=== PATIENT | female | born 1955 | race Caucasian/White ===

== ENCOUNTER 2018-03-27 11:26 | Emergency (ER) | payer OTHER ==
[~2018-03-27] VITALS: Ht 147.3 cm; Wt 65.8 kg
[~2018-03-27 11:26] MED LIST: ACTOS15 MG PO; ASPIRIN EC81 M1 PO; CEFUROXIME500 MG PO; DOXYCYCLINE 10100 M1 PO; FISH OIL 1,0001 EAC7 PO; GLUCOPHAGE500 MG PO; GLUCOTROL XL10 MG PO; INVOKANA100 MG PO; LANTUS100 UNIT/M SUBQ; LISINOPRIL5 MG PO; ZOCOR20 MG PO; ZOLOFT 50 MG TA50 M1 PO
[2018-03-27] MEDS ORDERED: TRULICITY1.5 MG/0.5 INJECTION (11:44)
[2018-03-27] MEDS ORDERED: LEVEMIR SUBQ (11:45)
[2018-03-27 11:58] LABS: HEMATOCRIT 44.4 % (37.0-47.0); MCH 28.8 pg (26.0-34.0); MCHC 33.9 g/dL (28.0-37.0); MCV 84.9 fL (80.0-100.0); MPV 7.6 fl. (7.2-11.1); NUCLEATED RBCS 0 /100WBC; PLATELET COUNT* 253 thou/uL (150-400); RBC 5.22 mil/uL (4.20-5.00); RDW-CV 14.5 % (10.5-14.5); WBC 14.7 thou/uL (4.0-11.0)
[2018-03-27 11:59] LABS: URINE BILIRUBIN NEGATIVE (Negative); URINE BLOOD TRACE (Negative); URINE CLARITY CLEAR; URINE COLOR YELLOW; URINE GLUCOSE-RANDOM 3+ (Negative); URINE KETONES TRACE (Negative); URINE LEUKOCYTES-REFLEX NEGATIVE (Negative); URINE PROTEIN NEGATIVE (Negative); URINE SPECIFIC GRAVITY 1.025 (1.005-1.030); URINE UROBILINOGEN 0.2 E.U./dl (0.2-1.0)
[2018-03-27 12:02] LABS: ANION GAP 9 mmol/L (7-16); BUN 15 mg/dL (7-18); CALCIUM 8.6 mg/dL (8.5-10.1); CHLORIDE 101 mmol/L (98-107); CO2 27 mmol/L (21-32); CREATININE 0.8 mg/dL (0.6-1.3); GLUCOSE 272 mg/dL (70-99); POTASSIUM 4.1 mmol/L (3.5-5.1); SODIUM 137 mmol/L (136-145)
[2018-03-27 12:02] LABS: URINE NITRITE-REFLEX POSITIVE (Negative)
[2018-03-27 12:09] LABS: ALBUMIN 4.2 g/dL (3.4-5.0); ALKALINE PHOSPHATASE 88 U/L (46-116); LIPASE 124 U/L (73-393); SGOT 15 U/L (15-37); SGPT 26 U/L (30-65); TOTAL BILIRUBIN 0.4 mg/dL (<0.1-1.0); TROPONIN-I LEVEL <0.06 ng/mL (<0.06)
[2018-03-27 12:17] LABS: SQUAMOUS 0-3 Few /LPF (0-3)
[2018-03-27 12:18] LABS: BACTERIA-REFLEX >30 Many /HPF (None Seen); CASTS None Seen /LPF (None Seen); CRYSTALS None Seen /LPF (None Seen); URINE RBC 0-2 Rare /HPF (0-2); URINE WBC-REFLEX 0-5 Rare /HPF (0-5)
[2018-03-27 12:19] LABS: MUCUS 0-3 Light strn/LPF (None Seen)
[2018-03-27] MEDS ORDERED: ZOFRAN ODT4 MG PO (12:59)
[2018-03-27] MEDS ORDERED: CARAFATE1 GM PO (12:59)
[2018-03-27] MEDS ORDERED: KEFLEX500 M1 PO (12:59)
[2018-03-27 13:12] VITALS: BP 121/75
[2018-03-27 13:36] LABS: ABSOLUTE EOSINOPHILS 0.3 thou/uL (0.0-0.7); ABSOLUTE LYMPHOCYTES 1.5 thou/uL (0.8-5.3); ABSOLUTE MONOCYTES 0.9 thou/uL (0.0-1.2); ABSOLUTE NEUTROPHILS 12.1 thou/uL (1.6-8.1)
[2018-03-27 13:38] LABS: PLATELET ESTIMATE ADEQUATE
[2018-03-27 13:39] LABS: ANISOCYTOSIS 1+
--- NOTE | 2018-03-29 10:21 | EKG ---
[place] [address] ELECTROCARDIOGRAM REPORT Name: DANIAL MIMS Room: [facility]#: [id number] Admission: 03/27/18 Attend Phys: Discharge: 03/27/18 Date of : 53 Report #: [id number] THIS REPORT FOR: //name// [facility] ED Test Date: 2018-03-27 Test Time: 12:01:20 Pat Name: DANIAL MIMS Department: Room: Gender: F [employer]: Gallito LUU : 1955 Requested By: Vadim Medina Order Number: [id number] MD: Shravan Cuellar Measurements Intervals [place] Rate: 92 P: 48 WA: 146 QRS: -1 QRSD: 74 T: 38 QT: 359 QTc: 445 Interpretive Statements Sinus rhythm Low voltage, precordial leads Baseline wander in lead(s) V6 Compared to ECG 10/31/2016 08:28:43 Sinus tachycardia no longer present Electronically Signed On 03-29-2018 10:21:14 CDT by Shravan Cuellar [email or web address] <ELECTRONICALLY SIGNED> By: Shravan Cuellar MD, FAC 03/29/18 1021 1201 1201 Shravan Cuellar MD, [facility] /EPI
== END 2018-03-27 13:13 | disposition home or self-care (01) ==
LOC: M.ERS 11:26
PROVIDERS: Emergency Medicine Emergency Medical Services
DX: K52.9 Noninfective gastroenteritis and colitis, unspecified (principal); N39.0 Urinary tract infection, site not specified; E11.9 Type 2 diabetes mellitus without complications; F32.9 Major depressive disorder, single episode, unspecified; Z88.2 Allergy status to sulfonamides; Z79.4 Long term (current) use of insulin; Z90.710 Acquired absence of both cervix and uterus